=== PATIENT | female | born 1940 | race Hispanic/Latino ===

== ENCOUNTER 2017-03-02 22:52 | Inpatient (IN) | payer MEDICARE, MEDICAID ==
[~2017-03-02] VITALS: Ht 167.6 cm; Wt 72.6 kg
[2017-03-02] MEDS ORDERED: Ketorolac 30mg Inj IV PRN (23:30)
[2017-03-02] MEDS ORDERED: DuoNeb 0.5-3(2.5)mg/3ml neb HHN PRN (23:30)
[2017-03-02] MEDS ORDERED: Enalaprilat 2.5mg/2ml Inj IV PRN (23:30)
[2017-03-02] MEDS ORDERED: Morphine Sulfate 2mg/ml Inj IVP PRN (23:30)
[2017-03-02] MEDS ORDERED: Nitroglycerin Subl 0.4mg tab (Bottle Of 25) SL PRN (23:30)
[2017-03-02] MEDS ORDERED: Miralax 17gm pkt ORAL PRN (23:30)
[2017-03-02] MEDS ORDERED: Diltiazem 25mg/5ml IV PRN (23:30)
[2017-03-03] VITALS (8 sets, daily range): BP systolic 98–172; BP diastolic 55–90
[2017-03-03 00:08] LABS: ALANINE AMINOTRANSFERASE 21 U/L (3-33); ANION GAP 15 (5-15); ASPARTATE AMINO TRANSFERASE 21 U/L (5-40); CALCIUM 9.2 mg/dL (8.6-10.2); CARBON DIOXIDE 25 mEQ/L (20-30); CHLORIDE 99 mEQ/L (98-107); CREATININE 1.1 mg/dL (0.5-0.9); HEMOLYSIS 2; POTASSIUM 4.5 mEQ/L (3.4-4.9); SODIUM 139 mEQ/L (135-145); TOTAL PROTEIN 6.4 g/dL (6.6-8.7)
[2017-03-03 00:18] LABS: TROPONIN I < 0.30 ng/mL (<=0.30)
[2017-03-03 00:22] LABS: BASOPHILS % (AUTO) 1.3 % (0.0-2.0); EOSINOPHILS % (AUTO) 3.2 % (0.0-3.0); LYMPHOCYTES % (AUTO) 39.7 % (20.0-45.0); MEAN CORPUSCULAR HEMOGLOBIN 28.6 PG (27.0-31.0); MEAN CORPUSCULAR VOLUME 89 FL (80-99); MONOCYTES % (AUTO) 7.4 % (1.0-10.0); NEUTROPHILS % (AUTO) 48.5 % (45.0-75.0); PLATELET COUNT 280 K/UL (150-450); RED BLOOD COUNT 3.24 M/UL (4.20-5.40); RED CELL DISTRIBUTION WIDTH 13.9 % (11.6-14.8); WHITE BLOOD COUNT 9.4 K/UL (4.8-10.8)
[2017-03-03 00:42] LABS: APPEARANCE,URINE CLEAR; KETONES,URINE NEGATIVE (NEGATIVE); LEUKOCYTE ESTERASE ,URINE NEGATIVE (NEGATIVE); NITRITE,URINE NEGATIVE (NEGATIVE); PH,URINE 6.5 (4.5-8.0); PROTEIN,URINE NEGATIVE (NEGATIVE); UROBILINOGEN,URINE NORMAL MG/DL (0.0-1.0)
--- NOTE | 2017-03-03 00:59 | Emergency Room Report ---
History of Present Illness General Chief Complaint: Chest Pain Source: Patient, Family Member, EMS Present Illness HPI This is a 76-year-old female with history of diabetes. She had recent admission to [place] for sepsis and bacteremia from UTI. 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 She is currently getting daily Rocephin through a PICC line for it. This is supposed to be a 6 week course. She was in bed when she developed substernal chest pain. He said he going to her neck. She felt nauseous and diaphoretic. EMS gave her nitroglycerin and aspirin. Pain resolved by the time she got here. Lasted about 10 minutes. No other complaint. Never had this problem before. Allergies: Coded Allergies: No Known Allergies (Unverified , 03/02/17) Patient History Past Medical History: see triage record, old chart reviewed, DM, HTN Past Surgical History: other Pertinent Family History: other Social History: Denies: smoking Now: No Immunizations: other Reviewed Nursing Documentation: PMH: Agreed, PSxH: Agreed Nursing Documentation-PMH Past Medical History: No Stated History Hx Hypertension: Yes Hx Diabetes: Yes Review of Systems Eye: Denies: blurred vision, eye pain ENT: Denies: ear pain, nose congestion, throat swelling Respiratory: Denies: cough, shortness of breath Cardiovascular: Reports: chest pain, Denies: palpitations Gastrointestinal: Denies: abdominal pain, diarrhea, nausea, vomiting Musculoskeletal: Denies: back pain, joint pain Skin: Denies: rash Neurological: Denies: headache, numbness Endocrine: Denies: increased thirst, increased urine Hematologic/Lymphatic: Denies: easy bruising All Other Systems: negative except mentioned in HPI Physical Exam Vital Signs Date Time Temp Pulse Resp B/P Pulse Ox O2 Delivery O2 Flow Rate FiO2 03/02/17 22:54 96.8 86 20 139/70 98 Room Air vitals unremarkable Sp02 EP Interpretation: reviewed, normal General Appearance: well appearing, no apparent distress, alert Head: normocephalic, atraumatic Eyes: bilateral eye EOMI, bilateral eye PERRL ENT: hearing grossly normal, normal pharynx Neck: full range of motion, supple, no meningismus Respiratory: chest non-tender, lungs clear, normal breath sounds Cardiovascular #1: regular rate, rhythm, no murmur Gastrointestinal: normal bowel sounds, non tender, no mass, no organomegaly, no bruit, non-distended Musculoskeletal: back normal, normal range of motion Neurologic: alert, oriented x3 Psychiatric: mood/affect normal Skin: warm/dry Medical Decision Making Diagnostic Impression: Primary Impression: ACS (acute coronary syndrome) Additional Impression: Diabetes type 2, uncontrolled Qualified Codes: E11.65 - Type 2 diabetes mellitus with hyperglycemia ER Course Patient presents with chest pain concerning for ACS. Troponin negative. EKG unremarkable. Because of her age and risk factors, will admit for further workup. Lab Results Impression labs with hyperglycemia EKG Diagnostic Results Rate: normal Rhythm: NSR ST Segments: no acute changes Rhythm Strip Diag. Results EP Interpretation: yes Rate: 75 Rhythm: NSR, no PVC's, no ectopy Chest X-Ray Diagnostic Results EP Interpretation: Yes Findings: no consolidation, no effusion, no pneumothorax, no acute cardiopulmonary disease Number of Views: 1 Last Vital Signs Date Time Temp Pulse Resp B/P Pulse Ox O2 Delivery O2 Flow Rate FiO2 03/03/17 00:19 98.3 62 15 118/65 99 Room Air Status: improved Disposition: ADMITTED INPATIENT Condition: Serious DAVID WILSON M.D. Mar 03, 2017 00:59
[2017-03-03] MEDS ORDERED: CEFTRIAXONE2 G2 IV (01:40)
[2017-03-03] MEDS ORDERED: GLIMEPIRIDE4 MG ORAL (01:40)
[2017-03-03] MEDS ORDERED: LYRICA75 M1 ORAL (01:40)
[2017-03-03] MEDS ORDERED: LEVOTHYROXINE150 MCG ORAL (01:40)
[2017-03-03] MEDS ORDERED: ATIVAN2 MG/1 ML IV (01:50)
[2017-03-03 03:22] LABS: CKMB 1.9 ng/mL (< 3.8)
[2017-03-03 06:22] LABS: BASOPHILS % (AUTO) 1.8 % (0.0-2.0); EOSINOPHILS % (AUTO) 3.2 % (0.0-3.0); MEAN CORPUSCULAR HEMOGLOBIN 27.8 PG (27.0-31.0); MEAN CORPUSCULAR HGB CONC 31.6 G/DL (32.0-36.0); MEAN CORPUSCULAR VOLUME 88 FL (80-99); PLATELET COUNT 311 K/UL (150-450); RED BLOOD COUNT 3.38 M/UL (4.20-5.40); RED CELL DISTRIBUTION WIDTH 14.3 % (11.6-14.8); WHITE BLOOD COUNT 7.8 K/UL (4.8-10.8)
[2017-03-03 06:34] LABS: PROTHROMBIN TIME 10.5 SEC (9.30-11.50)
[2017-03-03 06:39] LABS: CHOLESTEROL 106 mg/dL (< 200); CHOLESTEROL/HDL RATIO 3.3 (3.3-4.4); CRP QUANT < 0.3 mg/dL (< 0.5); HEMOLYSIS 0; LDL CHOLESTEROL (CALC.) 51 mg/dL (60-99)
[2017-03-03 06:40] LABS: TROPONIN I < 0.30 ng/mL (<=0.30)
[2017-03-03 06:49] LABS: THYROID STIMULATING HORMONE 0.398 uIU/mL (0.300-4.500)
[2017-03-03] MEDS ORDERED: Vancomycin 1gm/D5W 275ml IVPB SCH ×2 (09:00)
[2017-03-03] MEDS ORDERED: Aspirin Baby 81mg ORAL SCH (09:00)
[2017-03-03] MEDS ORDERED: Heparin 5000 units/ml inj SUBQ SCH (09:00)
--- NOTE | 2017-03-03 10:34 | Cardiology Progress Note ---
Assessment/Plan Assessment/Plan chest pain concerning for angina dm htn recent urosepsis recent resolved renal fialure tro pneg need perfusion iamgign home if normal [id number] Objective Last 24 Hour Vital Signs Date Time Temp Pulse Resp B/P Pulse Ox O2 Delivery O2 Flow Rate FiO2 03/03/17 07:13 98.3 65 15 127/62 98 Room Air 03/03/17 07:10 97.9 63 17 138/73 97 Room Air 03/03/17 06:57 65 15 127/62 98 Room Air 03/03/17 04:30 63 18 126/59 99 Room Air 03/03/17 02:20 66 15 109/55 97 Room Air 03/03/17 00:19 98.3 62 15 118/65 99 Room Air 03/02/17 23:05 86 20 Room Air 03/02/17 22:54 96.8 86 20 139/70 98 Room Air Laboratory Tests Test 03/02/17 23:30 03/03/17 00:00 03/03/17 05:45 White Blood Count 9.4 K/UL (4.8-10.8) 7.8 K/UL (4.8-10.8) Red Blood Count 3.24 M/UL (4.20-5.40) L 3.38 M/UL (4.20-5.40) L Hemoglobin 9.3 G/DL (12.0-16.0) L 9.4 G/DL (12.0-16.0) L Hematocrit 29.0 % (37.0-47.0) L 29.8 % (37.0-47.0) L Mean Corpuscular Volume 89 FL (80-99) 88 FL (80-99) Mean Corpuscular Hemoglobin 28.6 PG (27.0-31.0) 27.8 PG (27.0-31.0) Mean Corpuscular Hemoglobin Concent 32.0 G/DL (32.0-36.0) 31.6 G/DL (32.0-36.0) L Red Cell Distribution Width 13.9 % (11.6-14.8) 14.3 % (11.6-14.8) Platelet Count 280 K/UL (150-450) 311 K/UL (150-450) Mean Platelet Volume 9.0 FL (6.5-10.1) 10.0 FL (6.5-10.1) Neutrophils (%) (Auto) 48.5 % (45.0-75.0) 42.0 % (45.0-75.0) L Lymphocytes (%) (Auto) 39.7 % (20.0-45.0) 44.0 % (20.0-45.0) Monocytes (%) (Auto) 7.4 % (1.0-10.0) 9.0 % (1.0-10.0) Eosinophils (%) (Auto) 3.2 % (0.0-3.0) H 3.2 % (0.0-3.0) H Basophils (%) (Auto) 1.3 % (0.0-2.0) 1.8 % (0.0-2.0) Sodium Level 139 mEQ/L (135-145) Potassium Level 4.5 mEQ/L (3.4-4.9) Chloride Level 99 mEQ/L (98-107) Carbon Dioxide Level 25 mEQ/L (20-30) Anion Gap 15 (5-15) Blood Urea Nitrogen 29 mg/dL (7-23) H Creatinine 1.1 mg/dL (0.5-0.9) H Estimat Glomerular Filtration Rate mL/min (>60) Glucose Level 273 mg/dL (74-106) H Calcium Level 9.2 mg/dL (8.6-10.2) Total Bilirubin < 0.2 mg/dL (0.0-1.2) Aspartate Amino Transf (AST/SGOT) 21 U/L (5-40) Alanine Aminotransferase (ALT/SGPT) 21 U/L (3-33) Alkaline Phosphatase 85 U/L (35-104) Total Creatine Kinase 22 U/L (26-140) L Creatine Kinase MB 1.9 ng/mL (< 3.8) Creatine Kinase MB Relative Index 8.6 Troponin I < 0.30 ng/mL (<=0.30) < 0.30 ng/mL (<=0.30) Pro-B-Type Natriuretic Peptide 238 pg/mL (0-450) Total Protein 6.4 g/dL (6.6-8.7) L Albumin 3.2 g/dL (3.5-5.2) L Globulin 3.2 g/dL Albumin/Globulin Ratio 1.0 (1.0-2.7) Urine Color Pale yellow Urine Appearance Clear Urine pH 6.5 (4.5-8.0) Urine Specific [place] 1.015 (1.005-1.035) Urine Protein Negative (NEGATIVE) Urine Glucose (UA) 1+ (NEGATIVE) H Urine Ketones Negative (NEGATIVE) Urine Occult Blood Negative (NEGATIVE) Urine Nitrite Negative (NEGATIVE) Urine Bilirubin Negative (NEGATIVE) Urine Urobilinogen Normal MG/DL (0.0-1.0) Urine Leukocyte Esterase Negative (NEGATIVE) Prothrombin Time 10.5 SEC (9.30-11.50) Prothromb Time International Ratio 1.0 (0.9-1.1) Activated Partial Thromboplast Time 25 SEC (23-33) C-Reactive Protein, Quantitative < 0.3 mg/dL (< 0.5) Triglycerides Level 116 mg/dL (< 150) Cholesterol Level 106 mg/dL (< 200) LDL Cholesterol 51 mg/dL (60-99) L HDL Cholesterol 32 mg/dL (> 60) Cholesterol/HDL Ratio 3.3 (3.3-4.4) Thyroid Stimulating Hormone (TSH) 0.398 uIU/mL (0.300-4.500) ELENA ROSA Mar 03, 2017 10:34
[2017-03-03] MEDS: NovoLOG Insulin Flexpen SUBQ SCH ×2 (11:21→11:22)
[2017-03-03] MEDS ORDERED: cefTRIAXone 2 GM in D5W 110 ML IVPB SCH (12:00)
--- NOTE | 2017-03-03 12:19 | Diagnostic Imaging Report ---
Indication: Chest pain Technique: One view of the chest Comparison: none Findings: Lungs and pleural spaces are clear. Heart size is normal. Aorta is tortuous. There is a right arm PICC, tip of which projects at level of mid superior vena cava Impression: No acute process PICC in good position
[2017-03-03] MEDS ORDERED: Tubing IV Secondary IV ONE (15:53)
[2017-03-03] MEDS ORDERED: NS 275ml ONE (15:53)
--- NOTE | 2017-03-03 16:58 | Consultation ---
DATE OF CONSULTATION: 03/03/2017 CARDIOLOGY CONSULTATION CONSULTING PHYSICIAN: Magno Neri M.D. REFERRING PHYSICIAN: Ger Shultz M.D. REASON FOR REFERRAL: Chest pain. HISTORY OF PRESENT ILLNESS: This is an elderly female, who presented to the hospital because of pain in the chest that started last night, radiating up to her neck, felt like suffocating and panic, called paramedics. Two sublingual nitroglycerine were administered by the paramedics and significantly improved the patient's chest pain eventually. After 20 minutes from the onset, the pain was completely resolved. She no longer has the pain at the present time. There is no PND or orthopnea. She uses two pillows for comfort. There is no dizziness or lightheadedness on standing. No heart pounding or palpitation. Her original vital signs from the paramedics were 180/92, and the patient is not allergic to any medication, although side effects to codeine . SOCIAL HISTORY: She does not smoke or drink alcoholic beverages. No drug use. Lives at home. PAST MEDICAL HISTORY: Positive diabetes and high blood pressure. No hyperlipidemia and no heart attack, for which she was previously seen by grain broker and market operator and she had a stress test that was apparently negative according to her. It was felt that she was having some anxiety reaction. She has recently been hospitalized in December of this year because of her infection in the urine and resultant renal failure. She was on dialysis for approximately four times and no longer requires dialysis, however, at that time. No other medical problems. REVIEW OF SYSTEMS: Gastrointestinal: There is no nausea, vomiting, diarrhea, or constipation. Genitourinary: Negative. Pulmonary: Negative. Constitutional: Negative. Neurologic: Negative. Musculoskeletal: Negative. Cardiac: As mentioned in HPI. PHYSICAL EXAMINATION: GENERAL: An elderly female, in no apparent respiratory distress. NECK: Supple. No jugular venous distention. No abdominojugular reflux noted. LUNGS: Clear to auscultation and percussion. CARDIAC: S1 is normal. S2 is normal. Regular rate and rhythm. No heaves. No thrills. No gallops are noted. ABDOMEN: Soft and nontender. Positive bowel sounds. EXTREMITIES: There is no clubbing, cyanosis, or edema. NEUROLOGIC: She is awake, alert, responsive, in no apparent distress. LABORATORY VALUES: EKG is in normal sinus rhythm, no ST or T wave abnormalities of significant degree, two separate EKGs. Her blood tests results, white count 7.8, hematocrit 9.4, and a platelet count of 311,000. Sodium 139, potassium 4.5, chloride 99, bicarbonate 25, BUN 29, creatinine 1.1, and glucose of 273. Liver function tests normal. Troponin is less than 0.03 on two separate occasions, one from last evening and one from this morning. Her proBNP is only 238. Total cholesterol is 106 with an LDL of 51 and HDL of 32. Coags, INR is 1.0 and PTT of 25. Urinalysis with 1+ protein. She has had reportedly a chest x-ray, although I am unable to review the chest x-ray myself, not available for review in the reports. Chest x-ray interpreted by the emergency physician shows no consolidation reported. The patient has no pneumothorax. No acute or chronic bronchial disease as interpreted by the emergency room physician. ASSESSMENT: 1. Chest pain. 2. Diabetes mellitus. 3. Hypertension. 4. Obesity. 5. History of recent renal failure and dialysis, now no longer on dialysis, resolved. RECOMMENDATION: Dr. Shultz, this patient was seen in cardiac consultation. The patient's symptoms are concerning for angina and multiple risk factors. She requests perfusion imaging. She does have problems with ambulating with the use of a walker and a wheelchair therefore, perfusion imaging, nonexercise, will be ordered and depending on the result of that test, further evaluation may or may not be necessary. If the test is normal, she maybe discharged home with follow up with her primary care of doctors as an outpatient. If the test is abnormal, we will discuss. Magno Neri M.D. DR: SILVINA JOB#: [id number] CC: SUSI
--- NOTE | 2017-03-03 19:28 | History and Physical Report ---
DATE OF ADMISSION: 03/03/2017 CHIEF COMPLAINT: Chest pain. HISTORY OF PRESENT ILLNESS: The patient reports that she had chest pain at home, which was heavy pressure in nature associated with nausea and diaphoresis. This lasted for about 10 minutes. The paramedics gave her aspirin and nitroglycerin with relief. She came to the emergency department and was pain free. Since then, her initial EKG and troponins are negative. She has no history of coronary disease. PAST MEDICAL HISTORY: She has multiple risk factors including hypertension and diabetes. She denies hyperlipidemia or smoking. MEDICATIONS: Reviewed and reconciled. ALLERGIES: None. FAMILY HISTORY: She is uncertain about her family history. REVIEW OF SYSTEMS: Otherwise unremarkable. PHYSICAL EXAMINATION: GENERAL: The patient is alert and awake. VITAL SIGNS: Normal. HEENT: Head is normocephalic. NECK: No jugular venous distention. CHEST: Clear. CARDIAC: Rhythm is regular. ABDOMEN: Soft and nontender. EXTREMITIES: No edema. LABORATORY DATA: Laboratory studies and EKG are reviewed. IMPRESSION: 1. Acute coronary syndrome. 2. Diabetes. 3. Hypertension. PLAN: The patient's troponins are negative. A dobutamine stress echo will be obtained. If this is normal, she may be discharged home. Ger Shultz M.D. DR: HOLGER JOB#: [id number] CC:
--- NOTE | 2017-03-04 09:19 | Cardiology Report ---
APPROVED REPORT EXAM: Two-dimensional and M-mode echocardiogram with Doppler and color Doppler. INDICATION Chest Pain M-Mode DIMENSIONS IVSd0.8 (0.7-1.1cm)Left Atrium (MM)3.1 (1.6-4.0cm) LVDd3.7 (3.5-5.6cm)Aortic Root3.1 (2.0-3.7cm) PWd1.2 (0.7-1.1cm)Aortic Cusp Exc.1.6 (1.5-2.0cm) LVDs2.3 (2.5-4.0cm) PWs1.7 cm Normal left ventricular chamber size, systolic function and wall motion. Left ventricular ejection fraction estimated to be 60-65 %. Mild left ventricular hypertrophy by 2-D. Anterior Echo-free space, may be due to pericardial fat or effusion. All other cardiac chamber sizes are within normal limits. Mild focal aortic valve sclerosis with adequate cusp excursion. Mildly thickened mitral valve leaflets with normal excursion. Mitral annulus and aortic root calcification. Pulmonic valve not well visualized. Normal tricuspid valve structure. IVC at normal size with physiologic collapse. A color flow and spectral Doppler study was performed and revealed: Trace mitral regurgitation. Mitral diastolic velocities suggest reduced left ventricular relaxation c/w mild LV diastolic dysfunction (Grade I ). Trace to mild tricuspid regurgitation. Tricuspid systolic velocities suggests peak right ventricular systolic pressure of 35 mmHg, consistent with borderline mild pulmonary hypertension. Pulmonic regurgitation present.
--- NOTE | 2017-03-04 17:19 | Discharge Summary ---
Discharge Summary Hospital Course Date of Admission Mar 03, 2017 at 01:45 Date of Discharge Mar 03, 2017 at 15:54 Admitting Diagnosis ACUTE CORONARY SYNDROME CARLITO Moody is a 76 year old female who was admitted on Mar 03, 2017 at 01 :45 for Acute Coronary Syndrome Hospital Course [id number] Discharge Discharge Disposition Patient was discharged to Home (01) Discharge Diagnoses: Iman Tan NP Mar 04, 2017 17:19
--- NOTE | 2017-03-04 23:38 | Discharge Summary 2 SIG ---
DATE OF ADMISSION: 03/03/2017 DATE OF DISCHARGE: 03/03/2017 COLD ROLL CATCHER: Magno Neri M.D. BRIEF HOSPITAL COURSE: The patient is a 76-year-old female, who presented to the ED complaining of chest pain, which started the night prior radiating up to the neck and felt like suffocating and panic. She called the paramedics. Sublingual nitroglycerin were administered by paramedics and improved chest pain. She came to emergency department, and was pain free. On evaluation at ED, initial troponins and EKG were normal but due to age and risk factors, the patient was admitted for further workup and was seen by Dr. Neri. Chest x-ray showed no consolidation. Echocardiogram was done showed normal left ventricular size, function, and wall motion with left ventricular ejection fraction of 60% to 65%. Serial troponins have been negative. She was given aspirin, Protonix and heparin with nitroglycerin p.r.n. She underwent a dobutamine stress test. Results were nonischemic. The patient was eventually discharged home. Advised to follow up with PMD. FINAL DIAGNOSES: 1. Chest pain. 2. Diabetes. 3. Hypertension. Ger Shultz M.D. I have been assigned to dictate discharge summary on this account and I was not involved in the patient's management. Iman Tan N.P. DR: FANNY JOB#: [id number] CC: SUSI
== END 2017-03-03 15:54 | disposition home or self-care (01) | DRG 311 ==
LOC: EDBD 22:52 → EDUNIT# 22:52 → EMR 23:08 → 2E 03-03 01:45 → EDBEDREQ 03-03 06:01 → 2E 03-03 06:49
DX: I24.9 Acute ischemic heart disease, unspecified (principal); E11.9 Type 2 diabetes mellitus without complications; I10 Essential (primary) hypertension
CPT/HCPCS: 36415; 71010; 80053; 80061; 81003; 82550; 82553; 82962; 83880; 84443; 84484; 85025; 85610; 85730; 86140; 87081; 93005; 93017; 93306; 93350; J1815